=== PATIENT | female | born 1955 | race African-American/Black ===

== ENCOUNTER 2017-04-15 19:59 | Emergency (ER) | payer OTHER, MEDICARE ==
[~2017-04-15] VITALS: Ht 165.1 cm; Wt 82.6 kg
[~2017-04-15 19:59] MED LIST: ANAS1TAB PO; ASPI325T4 PO; AZIT500T PO; CALC-192 PO; CEFD300C37 PO; CINN500C2 PO; CYAN50008 PO; GUAI5SYR PO; LEVO50TA5 PO; LOSA50TA6 PO; METO25TA91 PO; MULT-717 PO; OMEP40CA6 PO; ROSU40TA PO; TRAM50TA2 PO
[2017-04-15] MEDS ORDERED: HYDROcodone/APAP 5/325 TABLET PO ONE (21:00)
[2017-04-15] MEDS ORDERED: HYDROcodone/APAP 5/325 TABLET ONE (21:35)
[2017-04-15 22:56] VITALS: BP 121/80
== END 2017-04-15 22:59 | disposition home or self-care (01) ==
LOC: ED 22:53
DX: M79.672 Pain in left foot (principal); M79.89 Other specified soft tissue disorders; E78.00 Pure hypercholesterolemia, unspecified; E03.9 Hypothyroidism, unspecified; K21.9 Gastro-esophageal reflux disease without esophagitis; E11.9 Type 2 diabetes mellitus without complications; I10 Essential (primary) hypertension; Z90.710 Acquired absence of both cervix and uterus; Z87.891 Personal history of nicotine dependence; Z90.10 Acquired absence of unspecified breast and nipple
CPT/HCPCS: 82962; 99284

== ENCOUNTER 2017-08-29 16:39 | Emergency (ER) | payer OTHER, MEDICARE ==
[~2017-08-29] VITALS: Ht 165.1 cm; Wt 85.5 kg
[~2017-08-29 16:39] MED LIST changes: +ASPI325T17 PO; -ASPI325T4 PO; +ONDA4TAB10 PO
[2017-08-29 16:56] LABS: HEMOGLOBIN 13.2 g/dL (11.7-16.4)
[2017-08-29] MEDS ORDERED: GADOBUTROL 10 MMOL/10 ML PFS ONE (18:08)
[2017-08-29 18:55] VITALS: BP 120/73
[2017-08-29] MEDS ORDERED: VITAMIN E (19:00)
[2017-08-29] MEDS ORDERED: VITAMIN C (19:00)
== END 2017-08-29 19:28 | disposition home or self-care (01) ==
LOC: ED 17:12
DX: R29.810 Facial weakness (principal); E11.9 Type 2 diabetes mellitus without complications; E03.9 Hypothyroidism, unspecified; E78.00 Pure hypercholesterolemia, unspecified; K21.9 Gastro-esophageal reflux disease without esophagitis; I10 Essential (primary) hypertension; Z86.73 Personal history of transient ischemic attack (TIA), and cerebral infarction without residual deficits; Z87.891 Personal history of nicotine dependence
CPT/HCPCS: 36415; 70450; 70553; 80047; 85025; 85610; 85730; 93005; 99291; A9585

== ENCOUNTER → 2017-09-19 | Outpatient (CLI) | payer OTHER ==
[~2017-09-19] MED LIST changes: +VITAMIN C; +VITAMIN E
== END | disposition home or self-care (01) ==
LOC: CFH 15:29
PROVIDERS: ATTEND Internal Medicine Cardiovascular Disease
DX: I35.1 Nonrheumatic aortic (valve) insufficiency (principal); E78.5 Hyperlipidemia, unspecified; I10 Essential (primary) hypertension; R42 Dizziness and giddiness; Z85.3 Personal history of malignant neoplasm of breast; Z86.73 Personal history of transient ischemic attack (TIA), and cerebral infarction without residual deficits; Z92.3 Personal history of irradiation; Z90.13 Acquired absence of bilateral breasts and nipples
CPT/HCPCS: 93306

== ENCOUNTER → 2017-10-01 | Outpatient (CLI) | payer OTHER | LOC: RAD 13:21 | PROVIDERS: ATTEND Family Medicine | DX: R13.10 Dysphagia, unspecified (principal); I63.9 Cerebral infarction, unspecified | CPT/HCPCS: 74230 ==

== ENCOUNTER → 2017-10-24 | Outpatient (CLI) | payer OTHER, MEDICARE | END | disposition home or self-care (01) | LOC: CVU 08:58 | PROVIDERS: ATTEND Nurse Practitioner Family | DX: G45.9 Transient cerebral ischemic attack, unspecified (principal); E78.5 Hyperlipidemia, unspecified; I10 Essential (primary) hypertension; H53.9 Unspecified visual disturbance; R47.02 Dysphasia | CPT/HCPCS: 93880 ==

== ENCOUNTER → 2017-10-24 | Outpatient (CLI) | payer OTHER, MEDICARE | END | disposition home or self-care (01) | LOC: CFH 08:51 | DX: D18.03 Hemangioma of intra-abdominal structures (principal) | CPT/HCPCS: 76700 ==

== ENCOUNTER 2018-01-07 12:13 | Emergency (ER) | payer OTHER, MEDICARE ==
[~2018-01-07] VITALS: Ht 165.1 cm; Wt 82.0 kg
[2018-01-07] MEDS ORDERED: MORPHINE SULFATE 4 MG/ML, 1ML IVPush PRN (14:00)
[2018-01-07] MEDS ORDERED: SODIUM CHLORIDE FLUSH 10ML SYR IVF ONE (14:00)
[2018-01-07] MEDS ORDERED: ONDANSETRON ODT 4 MG PO ONE (14:00)
[2018-01-07] MEDS ORDERED: DIAZEPAM 5 MG/ML, 2ML IVPush ONE (14:00)
[2018-01-07 14:08] LABS: ALBUMIN 3.9 g/dL (3.4-5.0); ANION GAP 9 mmol/L (5-15); CALCIUM 9.3 mg/dL (8.5-10.1); CHLORIDE 110 mmol/L (98-107); CREATININE 0.71 mg/dL (0.55-1.02)
[2018-01-07] MEDS ORDERED: ONDANSETRON ODT 4 MG ONE (14:11)
[2018-01-07] MEDS ORDERED: MORPHINE SULFATE 4 MG/ML, 1ML ONE (14:12)
[2018-01-07 14:32] LABS: BASOPHILS # (AUTO) 0.03 x10^3/uL (0-0.1); BASOPHILS % (AUTO) 0 % (0-1); EOSINOPHILS # (AUTO) 0.05 x10^3/uL (0-0.4); EOSINOPHILS % (AUTO) 1 % (1-7); LYMPHOCYTES # (AUTO) 1.96 x10^3/uL (1-3.4); LYMPHOCYTES % (AUTO) 26 % (22-44); MEAN CORPUSCULAR HEMOGLOBIN 29.6 pg (27.0-34.8); MEAN CORPUSCULAR HGB CONC 33.4 g/dL (32.4-35.8); MEAN CORPUSCULAR VOLUME 88.5 fL (80-100); MONOCYTES # (AUTO) 0.71 x10^3/uL (0.2-0.8); MONOCYTES % (AUTO) 10 % (2-9); NEUTROPHILS # (AUTO) 4.69 x10^3/uL (1.8-6.8); NEUTROPHILS % (AUTO) 63 % (42-75); PLATELET COUNT 311 x10^3/uL (130-400); RED BLOOD COUNT 4.51 x10^6/uL (3.82-5.3); RED CELL DISTRIBUTION WIDTH 14.5 % (9.6-15.2)
[2018-01-07 14:37] LABS: MD NO
[2018-01-07 14:44] LABS: CULTURE INDICATED? YES; MICROSCOPIC INDICATED
[2018-01-07 15:47] VITALS: BP 132/80
== END 2018-01-07 16:53 | disposition home or self-care (01) ==
LOC: ED 16:35
DX: S39.012A Strain of muscle, fascia and tendon of lower back, initial encounter (principal); C50.919 Malignant neoplasm of unspecified site of unspecified female breast; E11.9 Type 2 diabetes mellitus without complications; E78.5 Hyperlipidemia, unspecified; I10 Essential (primary) hypertension; M51.36 Other intervertebral disc degeneration, lumbar region; W19.XXXA Unspecified fall, initial encounter; Y93.89 Activity, other specified; Y99.8 Other external cause status; Y92.89 Other specified places as the place of occurrence of the external cause
CPT/HCPCS: 36415; 72072; 72110; 73030; 80048; 81001; 82040; 85025; 87086; 96374; 96375; 99285; J3360; Q0162

== ENCOUNTER → 2018-02-28 | Outpatient (CLI) | payer OTHER, MEDICARE ==
[~2018-02-28] MED LIST changes: +OMNIPAQUE 350 MG/ML, 75ML BOTTLE ONE
== END | disposition home or self-care (01) ==
LOC: CFH 09:50
PROVIDERS: ATTEND Internal Medicine
DX: Z08 Encounter for follow-up examination after completed treatment for malignant neoplasm (principal); N64.4 Mastodynia; Z85.3 Personal history of malignant neoplasm of breast; Z90.12 Acquired absence of left breast and nipple; Z92.3 Personal history of irradiation
CPT/HCPCS: 71260; 76641; 77065; Q9967

== ENCOUNTER 2018-11-04 16:36 | Emergency (ER) | payer OTHER, MEDICARE ==
[~2018-11-04] VITALS: Ht 165.1 cm; Wt 88.0 kg
[~2018-11-04 16:36] MED LIST changes: +LOSA50TA14 PO; -LOSA50TA6 PO; -OMNIPAQUE 350 MG/ML, 75ML BOTTLE ONE
[2018-11-04] MEDS ORDERED: SODIUM CHLORIDE FLUSH 10ML SYR IVF ONE (17:00)
[2018-11-04] MEDS ORDERED: ASPIRIN 81 MG TABLET CHEW PO ONE (17:00)
[2018-11-04] MEDS ORDERED: ASPIRIN 81 MG TABLET CHEW ONE (17:06)
--- NOTE | 2018-11-04 17:13 | NUR ---
PT. IS A & O X 4 WITH C/O CHEST PAIN SINCE 3 PM TODAY. PT.'S 12 LEAD EKG WAS DONE. PT. HAS THE CP MONITOR IN PLACE. LUNGS ARE CTA. MM ARE PINK AND MOIST WITH PULSES +2 THROUGHOUT. SIDERAILS ARE UP X 2 WITH THE CALL LIGHT IN PLACE. PT.'S ABD. IS SOFT AND FLAT WITH BS + X 4 QUADS. PULSES ARE +2 THROUGHOUT.
[2018-11-04 17:21] LABS: BASOPHILS # (AUTO) 0.03 x10^3/uL (0-0.1); BASOPHILS % (AUTO) 1 % (0-1); EOSINOPHILS # (AUTO) 0.02 x10^3/uL (0-0.4); EOSINOPHILS % (AUTO) 0 % (1-7); LYMPHOCYTES # (AUTO) 1.66 x10^3/uL (1-3.4); LYMPHOCYTES % (AUTO) 27 % (22-44); MD NO; MEAN CORPUSCULAR HEMOGLOBIN 29.7 pg (27.0-34.8); MEAN CORPUSCULAR VOLUME 90.1 fL (80-100); MEAN PLATELET VOLUME 7.8 fL (7.4-10.4); MONOCYTES # (AUTO) 0.55 x10^3/uL (0.2-0.8); MONOCYTES % (AUTO) 9 % (2-9); NEUTROPHILS # (AUTO) 3.98 x10^3/uL (1.8-6.8); NEUTROPHILS % (AUTO) 64 % (42-75); PLATELET COUNT 306 x10^3/uL (130-400); RED BLOOD COUNT 4.56 x10^6/uL (3.82-5.3); RED CELL DISTRIBUTION WIDTH 13.2 % (9.6-15.2)
[2018-11-04 17:25] LABS: INTERNATIONAL NORMALIZED RATIO 1.01 (0.93-1.1); PROTHROMBIN TIME 10.7 Seconds (9.6-11.5)
[2018-11-04 17:28] LABS: ALANINE AMINOTRANSFERASE 43 U/L (12-78); ANION GAP 8 mmol/L (5-15); CALCIUM 9.8 mg/dL (8.5-10.1); CHLORIDE 111 mmol/L (98-107); CREATININE 0.82 mg/dL (0.55-1.02)
[2018-11-04 17:33] LABS: ALKALINE PHOSPHATASE 100 U/L (45-117); BILIRUBIN,TOTAL 0.5 mg/dL (0.2-1.0); TOTAL PROTEIN 8.2 g/dL (6.4-8.2); TROPONIN I < 0.015 ng/mL (0.000-0.045)
[2018-11-04] MEDS ORDERED: KETOROLAC 30 MG/1 ML ONE (17:59)
[2018-11-04] MEDS ORDERED: MAALOX/HYOSCYAMINE/LIDOCAINE 45 ML BTL ONE (17:59)
[2018-11-04] MEDS ORDERED: KETOROLAC 30 MG/1 ML IM ONE (18:00)
[2018-11-04] MEDS ORDERED: MAALOX/HYOSCYAMINE/LIDOCAINE 45 ML BTL PO ONE (18:00)
--- NOTE | 2018-11-04 18:05 | NUR ---
PT GIVEN GI COCTAIL AND TORADOL, RESTING IN BED, STILL WITH INTERMITTENT CP 04/01, REPEAT SCOTTY 193
--- NOTE | 2018-11-04 19:10 | NUR ---
RECEIVED BS REPORT FROM GITA SHOEMAKER TO ASSUME PT. CARE AT 1857. PT. RESTING ON GURNEY WITH NADN. CALL LIGHT IN REACH. FAMILY AT BS. REPEAT TROP AT 1930 THEN DISPO. PT. DENIES NEEDS. ALL MONITORS IN PLACE.
[2018-11-04 20:07] LABS: TROPONIN I < 0.015 ng/mL (0.000-0.045)
--- NOTE | 2018-11-04 20:15 | NUR ---
PT. CHART UP FOR RECHECK BY ZACHARY AT THIS TIME. PT. RESTING ON GURNEY WITH NADN. DENIES NEEDS.
[2018-11-04 20:45] VITALS: BP 133/70
== END 2018-11-04 20:51 | disposition home or self-care (01) ==
LOC: ED 19:23
DX: K21.9 Gastro-esophageal reflux disease without esophagitis (principal); E78.5 Hyperlipidemia, unspecified; E03.9 Hypothyroidism, unspecified; E78.00 Pure hypercholesterolemia, unspecified; E11.9 Type 2 diabetes mellitus without complications; I10 Essential (primary) hypertension; Z86.73 Personal history of transient ischemic attack (TIA), and cerebral infarction without residual deficits; Z88.5 Allergy status to narcotic agent
CPT/HCPCS: 36415; 71045; 80053; 83735; 84484; 85025; 85610; 93005; 96372; 99284; J1885

== ENCOUNTER 2018-11-11 11:04 | Observation (INO) | payer OTHER, MEDICARE ==
[~2018-11-11] VITALS: Ht 165.1 cm; Wt 88.0 kg
--- NOTE | 2018-11-11 11:05 | NUR ---
bib remsa for sudden onset slurred speech and became slow to respons w/ r sided droop that worsened. sx started at 1000 roughly and sx have almost completely resolved. pt states she is under a large amount of stress. 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 hx multiple tia's and 2 cva's. denies arizmendi, n/v. pt taken to ct upon arrival to ED.
--- NOTE | 2018-11-11 11:15 | NUR ---
pt had no PIV access. US guided PIV initiated in CT at [address] ang[address].
[2018-11-11 11:20] LABS: EOSINOPHILS # (AUTO) 0.01 x10^3/uL (0-0.4); MD NO; MEAN CORPUSCULAR HGB CONC 33.5 g/dL (32.4-35.8); RED CELL DISTRIBUTION WIDTH 13.3 % (9.6-15.2)
--- NOTE | 2018-11-11 11:29 | NUR ---
tele neuro consulting at this time.
[2018-11-11] MEDS ORDERED: OMNIPAQUE 350 MG/ML, 100ML BOTTLE ONE (11:30)
[2018-11-11 11:32] LABS: INTERNATIONAL NORMALIZED RATIO 1.04 (0.93-1.1)
[2018-11-11 11:37] LABS: BASOPHILS # (AUTO) 0.03 x10^3/uL (0-0.1); BASOPHILS % (AUTO) 0 % (0-1); EOSINOPHILS % (AUTO) 0 % (1-7); LYMPHOCYTES # (AUTO) 0.81 x10^3/uL (1-3.4); LYMPHOCYTES % (AUTO) 11 % (22-44); MEAN CORPUSCULAR HEMOGLOBIN 30.5 pg (27.0-34.8); MEAN CORPUSCULAR VOLUME 90.8 fL (80-100); MEAN PLATELET VOLUME 7.9 fL (7.4-10.4); MONOCYTES # (AUTO) 0.44 x10^3/uL (0.2-0.8); MONOCYTES % (AUTO) 6 % (2-9); NEUTROPHILS # (AUTO) 6.27 x10^3/uL (1.8-6.8); NEUTROPHILS % (AUTO) 83 % (42-75); PLATELET COUNT 295 x10^3/uL (130-400); RED BLOOD COUNT 4.31 x10^6/uL (3.82-5.3)
--- NOTE | 2018-11-11 11:40 | NUR ---
pt verbalizes sx mostly resolved w/ mild sx slow speech and RLE slightly worsened from baseline.
[2018-11-11] MEDS ORDERED: SODIUM CHLORIDE FLUSH 10ML SYR IVF PRN (12:00)
[2018-11-11] MEDS ORDERED: MELO7.5T31 PO (12:05)
--- NOTE | 2018-11-11 12:05 | NUR ---
pt resting on gurney. nadn. beyer.
--- NOTE | 2018-11-11 12:12 | NUR ---
pt ambulatory to bedside commode x1 assist and back to bed. pt repositioned for comfort. jacquelin.
--- NOTE | 2018-11-11 13:49 | NUR ---
LUIGI ruiz APRN at bedside.
[2018-11-11] MEDS ORDERED: BISACODYL 10 MG SUPP PR PRN (14:00)
[2018-11-11] MEDS ORDERED: ACETAMINOPHEN 325 MG TABLET PO PRN (14:00)
[2018-11-11] MEDS ORDERED: DOCUSATE 100 MG CAPSULE PO PRN (14:00)
[2018-11-11] MEDS ORDERED: ONDANSETRON 2MG/ML, 2ML IVPush PRN (14:00)
[2018-11-11] MEDS ORDERED: hydrALAzine 20 MG/ML, 1ML IVPush PRN (14:00)
[2018-11-11] MEDS ORDERED: POLYETHYLENE GLYCOL 17 GM PACKET PO PRN (14:00)
--- NOTE | 2018-11-11 14:16 | NUR ---
EEG to be completed at bedside. per biomedical instrument technician pt cannot have food at this time. Pt aware and agreeable.
--- NOTE | 2018-11-11 14:35 | NUR ---
EEG being performed at bedside.
[2018-11-11 15:12] LABS: HEMOGLOBIN A1C 6.4 % (4.2-6.3)
--- NOTE | 2018-11-11 15:16 | NUR ---
pt resting on gurney. nadn. beyer. eeg in progress.
--- NOTE | 2018-11-11 15:49 | NUR ---
EEG completed. Pt resting on [employer]. SUZETTE. Pt provided w/ food tray.
--- NOTE | 2018-11-11 16:34 | NUR ---
pt taken to MRI. pt to go up to floor w/ fagot maker assistance once MRI complete.
--- NOTE | 2018-11-11 16:37 | NUR ---
report given to jose Marques RN. All questions answered. Pt to be transferred up to T2 once MRI completed.
[2018-11-11 17:25] VITALS: BP 110/72
[2018-11-11] MEDS ORDERED: ENOXAPARIN 40 MG/0.4 ML SQ SCH (18:00)
[2018-11-11 19:20] VITALS: BP 115/71
[2018-11-11] MEDS ORDERED: ATORVASTATIN 80 MG TABLET PO SCH (21:00)
[2018-11-11] MEDS: SODIUM CHLORIDE FLUSH 10ML SYR IVF SCH (21:06)
[2018-11-12 00:06] VITALS: BP 103/70
[2018-11-12 04:02] VITALS: BP 119/75
[2018-11-12] MEDS ORDERED: LEVOTHYROXINE 50 MCG TABLET PO SCH ×2 (06:00→09:00)
[2018-11-12 06:16] LABS: BASOPHILS # (AUTO) 0.02 x10^3/uL (0-0.1); BASOPHILS % (AUTO) 0 % (0-1); EOSINOPHILS # (AUTO) 0.02 x10^3/uL (0-0.4); EOSINOPHILS % (AUTO) 0 % (1-7); LYMPHOCYTES # (AUTO) 0.97 x10^3/uL (1-3.4); LYMPHOCYTES % (AUTO) 20 % (22-44); MD NO; MEAN CORPUSCULAR HEMOGLOBIN 30.1 pg (27.0-34.8); MEAN CORPUSCULAR HGB CONC 33.1 g/dL (32.4-35.8); MEAN PLATELET VOLUME 7.8 fL (7.4-10.4); MONOCYTES # (AUTO) 0.79 x10^3/uL (0.2-0.8); MONOCYTES % (AUTO) 16 % (2-9); NEUTROPHILS # (AUTO) 3.12 x10^3/uL (1.8-6.8); NEUTROPHILS % (AUTO) 64 % (42-75); PLATELET COUNT 263 x10^3/uL (130-400); RED BLOOD COUNT 4.19 x10^6/uL (3.82-5.3); RED CELL DISTRIBUTION WIDTH 13.2 % (9.6-15.2)
[2018-11-12 06:21] LABS: CHLORIDE 112 mmol/L (98-107)
[2018-11-12 06:34] LABS: ANION GAP 4 mmol/L (5-15); CALCIUM 8.8 mg/dL (8.5-10.1); CHOL/HDL RATIO 2.8; CHOLESTEROL, TOTAL 154 mg/dL (140-239); CREATININE 0.74 mg/dL (0.55-1.02); HDL CHOL % 36 % (28-40); HDL CHOLESTEROL (DIRECT) 55 mg/dL (40-60); LDL CHOLESTEROL,CALCULATED 70 mg/dL (54-169); LDL/HDL RATIO 1.3 (0.5-3.0); TRIGLYCERIDES 147 mg/dL (50-200); VLDL CHOLESTEROL 29 mg/dL (0-25)
[2018-11-12 07:53] VITALS: BP 123/79
[2018-11-12 08:00] VITALS: BP 129/83
[2018-11-12] MEDS ORDERED: LOSARTAN 50MG TABLET PO SCH (09:00)
[2018-11-12] MEDS ORDERED: ANASTROZOLE 1 MG TABLET PO SCH (09:00)
[2018-11-12] MEDS ORDERED: ASPIRIN 325 MG TABLET PO SCH (09:00)
[2018-11-12] MEDS: METOPROLOL SUCCINATE 25 MG TAB.ER.24H PO SCH ×2 (09:00→10:16)
[2018-11-12] MEDS ORDERED: CALCIUM/VITAMIN D3 250-125 TABLET PO SCH (09:00)
[2018-11-12] MEDS ORDERED: CYANOCOBALAMIN 1,000 MCG TABLET PO SCH (09:00)
[2018-11-12] MEDS: SODIUM CHLORIDE FLUSH 10ML SYR IVF SCH (10:17)
--- NOTE | 2018-11-12 15:38 | NUR ---
Chopped diet with nectar thick liquids. Patient was educated on swallow precautions and strategies and these were placed on an orange sheet placed on her whiteboard in her room. Addendum: 11/12/18 at 1540 by RUTH WHITMAN Amended: Links added.
== END 2018-11-12 13:00 | disposition home or self-care (01) ==
LOC: ED 11:42 → INTOOBSV 11:43 → EDIP 11:43 → ED 11:44 → 4EST 17:00 → DCLOUNGE 11-12 12:50
PROVIDERS: ADMIT Internal Medicine; ATTEND Internal Medicine
DX: I69.351 Hemiplegia and hemiparesis following cerebral infarction affecting right dominant side (principal); R41.82 Altered mental status, unspecified; E03.9 Hypothyroidism, unspecified; E11.65 Type 2 diabetes mellitus with hyperglycemia; E78.00 Pure hypercholesterolemia, unspecified; E78.5 Hyperlipidemia, unspecified; F41.0 Panic disorder [episodic paroxysmal anxiety]; F41.1 Generalized anxiety disorder; G47.33 Obstructive sleep apnea (adult) (pediatric); I11.9 Hypertensive heart disease without heart failure; I69.391 Dysphagia following cerebral infarction; R13.10 Dysphagia, unspecified; K21.9 Gastro-esophageal reflux disease without esophagitis; Z82.49 Family history of ischemic heart disease and other diseases of the circulatory system; Z83.3 Family history of diabetes mellitus; Z85.3 Personal history of malignant neoplasm of breast; Z87.891 Personal history of nicotine dependence; Z90.12 Acquired absence of left breast and nipple; Z90.710 Acquired absence of both cervix and uterus
CPT/HCPCS: 36415; 70450; 70496; 70498; 70551; 80047; 80048; 80061; 83036; 83735; 85025; 85610; 85730; 92610; 93005; 95816; 96372; 97162; 97165; 99284; G0378; J1650; Q9967

== ENCOUNTER 2019-10-30 17:44 | Inpatient (IN) | payer MEDICARE ==
[~2019-10-30] VITALS: Ht 165.1 cm; Wt 85.0 kg
[~2019-10-30 17:44] MED LIST changes: +MELO7.5T31 PO; +OMEP40CA42 PO; -OMEP40CA6 PO
--- NOTE | 2019-10-30 18:26 | NUR ---
PT SITTING ON GURFALL BRANCH. PT ASKED TO CHANGE INTO GOWN.
--- NOTE | 2019-10-30 18:39 | NUR ---
63 Y/O FEMALE PRESENTS TO ED WITH C/O CP AND BACK PAIN. PER PT "I HAVE HAD SOME CHEST PAIN THAT WRAPS ALL AROUND TO MY BACK. IT'S BEEN HURTING FOR TWO DAYS. SOMETIMES IT HURTS SO BAD IT STOPS ME IN MY TRACKS." NADN. BEDSIDE. PT PLACED ON CONT PULSE OX,NIBP, TOBACCO GROWER. NO C/O N/V/D, TRAUMA, SYNCOPE, SOB.
--- NOTE | 2019-10-30 18:52 | NUR ---
BEDSIDE REPORT TO GITA ADAME.
--- NOTE | 2019-10-30 18:54 | NUR ---
RPT RECEIVED FROM GITA KOHLER. ASSUMED CARE OF PT. PT RESTING COMFORTABLY. NO NEEDS AT THIS TIME. MONITOR IN PLACE.
[2019-10-30] MEDS ORDERED: SODIUM CHLORIDE FLUSH 10ML SYR IVF ONE (19:00)
[2019-10-30] MEDS ORDERED: NITROGLYCERIN SINGLE TAB 0.4 MG SL ONE (19:02)
[2019-10-30] MEDS: NITROGLYCERIN SINGLE TAB 0.4 MG SL PRN ×3 (19:09→19:25)
[2019-10-30 19:35] LABS: BASOPHILS # (AUTO) 0.03 x10^3/uL (0-0.1); BASOPHILS % (AUTO) 1 % (0-1); EOSINOPHILS # (AUTO) 0.06 x10^3/uL (0-0.4); EOSINOPHILS % (AUTO) 1 % (1-7); LYMPHOCYTES # (AUTO) 1.57 x10^3/uL (1-3.4); LYMPHOCYTES % (AUTO) 29 % (22-44); MD NO; MEAN CORPUSCULAR HEMOGLOBIN 29.5 pg (27.0-34.8); MEAN CORPUSCULAR HGB CONC 32.9 g/dL (32.4-35.8); MEAN CORPUSCULAR VOLUME 89.8 fL (80-100); MEAN PLATELET VOLUME 7.6 fL (7.4-10.4); MONOCYTES # (AUTO) 0.52 x10^3/uL (0.2-0.8); MONOCYTES % (AUTO) 10 % (2-9); NEUTROPHILS # (AUTO) 3.24 x10^3/uL (1.8-6.8); NEUTROPHILS % (AUTO) 60 % (42-75); PLATELET COUNT 270 x10^3/uL (130-400); RED BLOOD COUNT 4.08 x10^6/uL (3.82-5.3); RED CELL DISTRIBUTION WIDTH 13.3 % (9.6-15.2)
[2019-10-30 19:44] LABS: ALBUMIN 4.1 g/dL (3.4-5.0); ANION GAP 9 mmol/L (5-15); CALCIUM 9.9 mg/dL (8.5-10.1); CHLORIDE 109 mmol/L (98-107)
[2019-10-30 19:48] LABS: TROPONIN I < 0.015 ng/mL (0.000-0.045)
[2019-10-30] MEDS ORDERED: SODIUM CHLORIDE FLUSH 10ML SYR IVF PRN (21:00)
[2019-10-30] MEDS ORDERED: ACETAMINOPHEN 325 MG TABLET ONE (21:22)
[2019-10-30] MEDS ORDERED: ACETAMINOPHEN 325 MG TABLET PO ONE (21:30)
[2019-10-30] MEDS ORDERED: MAALOX/HYOSCYAMINE/LIDOCAINE 45 ML BTL PO ONE (22:30)
[2019-10-30] MEDS ORDERED: OMNIPAQUE 350 MG/ML, 100ML BOTTLE ONE (22:30)
[2019-10-30] MEDS: HYDROcodone/APAP 5/325 TABLET PO PRN (22:42)
[2019-10-30] MEDS ORDERED: LIDODERM 5% PATCH TD PRN (23:00)
[2019-10-30] MEDS ORDERED: TEMAZEPAM 15 MG CAPSULE PO PRN (23:00)
[2019-10-30] MEDS ORDERED: DOCUSATE 100 MG CAPSULE PO PRN (23:00)
[2019-10-30] MEDS ORDERED: ACETAMINOPHEN 325 MG TABLET PO PRN (23:00)
[2019-10-30] MEDS ORDERED: ONDANSETRON 2MG/ML, 2ML IVPush PRN (23:00)
[2019-10-30] MEDS ORDERED: POTASSIUM CHLORIDE 20 MEQ TAB.ER.PRT PO ONE (23:30)
[2019-10-31] MEDS: ATORVASTATIN 80 MG TABLET PO SCH ×2 (00:21→21:05)
[2019-10-31 02:39] LABS: TROPONIN I < 0.015 ng/mL (0.000-0.045)
[2019-10-31 03:43] VITALS: BP 87/50
[2019-10-31] MEDS: HEPARIN 5,000 UNITS/ML, 1ML SQ SCH ×3 (06:26→21:05)
[2019-10-31] MEDS: LEVOTHYROXINE 50 MCG TABLET PO SCH (06:30)
[2019-10-31 07:33] LABS: BASOPHILS # (AUTO) 0.03 x10^3/uL (0-0.1); BASOPHILS % (AUTO) 1 % (0-1); EOSINOPHILS # (AUTO) 0.06 x10^3/uL (0-0.4); EOSINOPHILS % (AUTO) 1 % (1-7); LYMPHOCYTES # (AUTO) 1.37 x10^3/uL (1-3.4); LYMPHOCYTES % (AUTO) 32 % (22-44); MD NO; MEAN CORPUSCULAR HEMOGLOBIN 29.3 pg (27.0-34.8); MEAN CORPUSCULAR HGB CONC 32.1 g/dL (32.4-35.8); MEAN CORPUSCULAR VOLUME 91.2 fL (80-100); MEAN PLATELET VOLUME 7.4 fL (7.4-10.4); MONOCYTES # (AUTO) 0.49 x10^3/uL (0.2-0.8); MONOCYTES % (AUTO) 12 % (2-9); NEUTROPHILS # (AUTO) 2.34 x10^3/uL (1.8-6.8); NEUTROPHILS % (AUTO) 55 % (42-75); PLATELET COUNT 240 x10^3/uL (130-400); RED BLOOD COUNT 3.91 x10^6/uL (3.82-5.3); RED CELL DISTRIBUTION WIDTH 13.3 % (9.6-15.2)
[2019-10-31 07:39] LABS: ANION GAP 8 mmol/L (5-15); CHLORIDE 113 mmol/L (98-107); CHOLESTEROL, TOTAL 119 mg/dL (140-239); CREATININE 0.98 mg/dL (0.55-1.02); TRIGLYCERIDES 111 mg/dL (50-200); VLDL CHOLESTEROL 22 mg/dL (0-25)
[2019-10-31 07:43] LABS: CHOL/HDL RATIO 3.1; HDL CHOL % 33 % (28-40); HDL CHOLESTEROL (DIRECT) 39 mg/dL (40-60); LDL CHOLESTEROL,CALCULATED 58 mg/dL (54-169); LDL/HDL RATIO 1.5 (0.5-3.0); TROPONIN I < 0.015 ng/mL (0.000-0.045)
[2019-10-31 08:30] VITALS: BP 112/66
[2019-10-31] MEDS ORDERED: METOPROLOL SUCCINATE 25 MG TAB.ER.24H PO SCH (09:00)
[2019-10-31] MEDS ORDERED: LOSARTAN 100 MG TAB PO SCH (09:00)
[2019-10-31] MEDS: OMEPRAZOLE 20 MG CAPSULE.DR PO SCH (09:34)
[2019-10-31] MEDS: ASPIRIN 325 MG TABLET PO SCH (09:34)
[2019-10-31] MEDS: CALCIUM/VITAMIN D3 250-125 TABLET PO SCH (09:34)
[2019-10-31] MEDS: CYANOCOBALAMIN 1,000 MCG TABLET PO SCH (09:35)
[2019-10-31] MEDS: MULTIVITAMINS/MINERALS TABLET PO SCH (09:35)
[2019-10-31] MEDS: ANASTROZOLE 1 MG TABLET PO SCH (09:50)
[2019-10-31 11:51] VITALS: BP_SYST 113; BP_SYST 139; BP_SYST 146; BP_DIAS 71; BP_DIAS 85; BP_DIAS 99
[2019-10-31 13:49] VITALS: BP 137/91
[2019-10-31] MEDS: HYDROcodone/APAP 5/325 TABLET PO PRN (13:55)
[2019-10-31] MEDS ORDERED: GADOTERATE 7.5 MMOL/15 ML SYR ONE (16:58)
[2019-10-31 20:25] VITALS: BP 108/70
[2019-11-01 03:13] VITALS: BP 106/74
[2019-11-01 05:14] LABS: ANION GAP 4 mmol/L (5-15); CALCIUM 8.9 mg/dL (8.5-10.1); CHLORIDE 112 mmol/L (98-107)
[2019-11-01 05:15] LABS: CREATININE 0.87 mg/dL (0.55-1.02)
[2019-11-01] MEDS: HEPARIN 5,000 UNITS/ML, 1ML SQ SCH ×2 (05:31→14:55)
[2019-11-01] MEDS: LEVOTHYROXINE 50 MCG TABLET PO SCH (05:32)
[2019-11-01] MEDS ORDERED: POTASSIUM CHLORIDE 20 MEQ TAB.ER.PRT PO SCH (08:00)
[2019-11-01 08:04] VITALS: BP 96/64
[2019-11-01] MEDS: ANASTROZOLE 1 MG TABLET PO SCH (09:00)
[2019-11-01] MEDS: MULTIVITAMINS/MINERALS TABLET PO SCH (09:35)
[2019-11-01] MEDS: CYANOCOBALAMIN 1,000 MCG TABLET PO SCH (09:35)
[2019-11-01] MEDS: CALCIUM/VITAMIN D3 250-125 TABLET PO SCH (09:35)
[2019-11-01] MEDS: ASPIRIN 325 MG TABLET PO SCH (09:35)
[2019-11-01] MEDS: OMEPRAZOLE 20 MG CAPSULE.DR PO SCH (09:35)
[2019-11-01] MEDS ORDERED: REGADENOSON 0.4 MG/5 ML SYRINGE ONE (11:06)
[2019-11-01 13:40] VITALS: BP 128/86
[2019-11-01] MEDS ORDERED: POTA20TA6 PO (16:51)
[2019-11-01] MEDS: HYDROcodone/APAP 5/325 TABLET PO PRN (17:38)
== END 2019-11-01 18:24 | disposition home or self-care (01) | DRG 313 ==
LOC: ED 19:31 → EDIP 21:02 → 5SO 21:28
PROVIDERS: ADMIT Internal Medicine; ATTEND Internal Medicine
DX: R07.89 Other chest pain (principal); I50.30 Unspecified diastolic (congestive) heart failure; E03.9 Hypothyroidism, unspecified; E11.9 Type 2 diabetes mellitus without complications; E78.00 Pure hypercholesterolemia, unspecified; E78.5 Hyperlipidemia, unspecified; E87.6 Hypokalemia; G47.33 Obstructive sleep apnea (adult) (pediatric); I11.0 Hypertensive heart disease with heart failure; R13.10 Dysphagia, unspecified; Z79.82 Long term (current) use of aspirin; Z82.49 Family history of ischemic heart disease and other diseases of the circulatory system; Z83.3 Family history of diabetes mellitus; Z85.3 Personal history of malignant neoplasm of breast; Z86.73 Personal history of transient ischemic attack (TIA), and cerebral infarction without residual deficits; Z87.891 Personal history of nicotine dependence; Z90.12 Acquired absence of left breast and nipple; Z90.710 Acquired absence of both cervix and uterus; Z92.21 Personal history of antineoplastic chemotherapy; Z88.6 Allergy status to analgesic agent
CPT/HCPCS: 36415; 71045; 71275; 72157; 78452; 80048; 80061; 82040; 83735; 83880; 84439; 84443; 84484; 85025; 93005; 93017; 93306; 93880; 99285; G0378; J1644; J2785; Q9967; A9502; A9575

== ENCOUNTER → 2019-11-27 | Outpatient (CLI) | payer MEDICARE ==
[~2019-11-27] MED LIST changes: +GADOTERATE 10 MMOL/20 ML SYR ONE; +POTA20TA6 PO
== END | disposition home or self-care (01) ==
LOC: CFH 09:55
PROVIDERS: ATTEND Internal Medicine
DX: Z12.31 Encounter for screening mammogram for malignant neoplasm of breast (principal); M85.88 Other specified disorders of bone density and structure, other site; Z85.3 Personal history of malignant neoplasm of breast
CPT/HCPCS: 70553; 77067; 77080; A9575

== ENCOUNTER 2020-03-26 13:37 | Emergency (ER) | payer MEDICARE ==
[~2020-03-26] VITALS: Ht 165.1 cm; Wt 85.3 kg
[~2020-03-26 13:37] MED LIST changes: -GADOTERATE 10 MMOL/20 ML SYR ONE
[2020-03-26 13:57] VITALS: BP 170/109
--- NOTE | 2020-03-26 15:20 | NUR ---
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
--- NOTE | 2020-03-26 15:48 | NUR ---
PA AT BEDSIDE EXAMINING PT
[2020-03-26 16:24] LABS: BASOPHILS # (AUTO) 0.02 x10^3/uL (0-0.1); BASOPHILS % (AUTO) 0 % (0-1); EOSINOPHILS # (AUTO) 0.07 x10^3/uL (0-0.4); EOSINOPHILS % (AUTO) 1 % (1-7); LYMPHOCYTES # (AUTO) 1.82 x10^3/uL (1-3.4); LYMPHOCYTES % (AUTO) 26 % (22-44); MD NO; MEAN CORPUSCULAR HEMOGLOBIN 29.6 pg (27.0-34.8); MEAN CORPUSCULAR HGB CONC 32.8 g/dL (32.4-35.8); MEAN CORPUSCULAR VOLUME 90.4 fL (80-100); MEAN PLATELET VOLUME 7.9 fL (7.4-10.4); MONOCYTES # (AUTO) 0.59 x10^3/uL (0.2-0.8); MONOCYTES % (AUTO) 8 % (2-9); NEUTROPHILS # (AUTO) 4.53 x10^3/uL (1.8-6.8); NEUTROPHILS % (AUTO) 64 % (42-75); PLATELET COUNT 294 x10^3/uL (130-400); RED CELL DISTRIBUTION WIDTH 13.7 % (9.6-15.2)
[2020-03-26 16:33] LABS: ALANINE AMINOTRANSFERASE 27 U/L (12-78); ALBUMIN 3.9 g/dL (3.4-5.0); ANION GAP 6 mmol/L (5-15); CALCIUM 9.5 mg/dL (8.5-10.1); CHLORIDE 110 mmol/L (98-107); CREATININE 0.76 mg/dL (0.55-1.02)
[2020-03-26 16:33] LABS: MICROSCOPIC AUTO
[2020-03-26 16:35] LABS: ALKALINE PHOSPHATASE 109 U/L (45-117); BILIRUBIN,TOTAL 0.3 mg/dL (0.2-1.0); TOTAL PROTEIN 7.8 g/dL (6.4-8.2)
--- NOTE | 2020-03-26 17:20 | NUR ---
AMBULATED TO LOBBY WITH USE OF CANE AND NO ASSISTANCE
== END 2020-03-26 17:23 | disposition home or self-care (01) ==
LOC: ED 13:57
DX: J02.8 Acute pharyngitis due to other specified organisms (principal); B34.9 Viral infection, unspecified; R53.1 Weakness; I10 Essential (primary) hypertension; E11.9 Type 2 diabetes mellitus without complications; E78.00 Pure hypercholesterolemia, unspecified; K21.9 Gastro-esophageal reflux disease without esophagitis; Z86.73 Personal history of transient ischemic attack (TIA), and cerebral infarction without residual deficits; Z85.3 Personal history of malignant neoplasm of breast
CPT/HCPCS: 36415; 71045; 80053; 81001; 85025; 87635; 93005; 99285

== ENCOUNTER 2020-09-01 16:12 | Emergency (ER) | payer MEDICARE ==
[~2020-09-01] VITALS: Ht 165.1 cm; Wt 88.3 kg
--- NOTE | 2020-09-01 16:28 | NUR ---
PT TO CT AT THIS TIME. NOTIFIED DR. NEGRO OF BP OF 152/90 AND BLOOD GLUCOSE OF 73.
--- NOTE | 2020-09-01 16:35 | NUR ---
TO RADIOLOGY FOR CT WITH AND WITHOUT CONTRAST
[2020-09-01 16:38] LABS: BASOPHILS % (AUTO) 1 % (0-1); EOSINOPHILS % (AUTO) 1 % (1-7); LYMPHOCYTES % (AUTO) 27 % (22-44); MEAN CORPUSCULAR HEMOGLOBIN 29.8 pg (27.0-34.8); MEAN CORPUSCULAR HGB CONC 33.1 g/dL (32.4-35.8); MONOCYTES % (AUTO) 12 % (2-9); NEUTROPHILS % (AUTO) 59 % (42-75); PLATELET COUNT 293 x10^3/uL (130-400); RED BLOOD COUNT 4.67 x10^6/uL (3.82-5.3)
[2020-09-01 16:41] LABS: MD NO
--- NOTE | 2020-09-01 16:44 | NUR ---
DR. DAVIDSON AT BEDSIDE (NEUROLOGY) MOST OF DEFICITS RESOLVED (NO DYSPHASIA, FACIAL DROOP) BUT STILL WITH GENERALIZED NO FOCAL DEFICITS
[2020-09-01] MEDS ORDERED: OMNIPAQUE 350 MG/ML, 100ML BOTTLE ONE (16:47)
[2020-09-01 16:51] LABS: INTERNATIONAL NORMALIZED RATIO 0.94 (0.93-1.1)
--- NOTE | 2020-09-01 16:51 | NUR ---
DR. DAVIDSON AT BEDSIDE- WITH HIS EXAM RIGHT LEG WEAKNESS (2) BUT SUSPECTS DEFICIT FROM PRIOR STROKE (PATIENT WELL KNOWN TO DR. DAVIDSON). DR. DAVIDSON SUSPECTS COMPLICATED MIGRAINE
--- NOTE | 2020-09-01 17:18 | NUR ---
[facility] Neuro called @ 1612 Dr. Garcia paged @ [phone] Called back @ [phone]
[2020-09-01] MEDS ORDERED: GADOTERATE 10 MMOL/20 ML VIAL ONE (18:55)
[2020-09-01 21:35] VITALS: BP 147/93
== END 2020-09-01 21:43 | disposition home or self-care (01) ==
LOC: ED 19:33
DX: R42 Dizziness and giddiness (principal); R47.81 Slurred speech; E11.9 Type 2 diabetes mellitus without complications; I10 Essential (primary) hypertension; R00.0 Tachycardia, unspecified; R51.9 Headache, unspecified; Z85.3 Personal history of malignant neoplasm of breast; Z90.10 Acquired absence of unspecified breast and nipple; Z86.73 Personal history of transient ischemic attack (TIA), and cerebral infarction without residual deficits; Z90.710 Acquired absence of both cervix and uterus
CPT/HCPCS: 70450; 70496; 70498; 70553; 80047; 82962; 85025; 85610; 85730; 93005; 99285; A9575; Q9967